=== PATIENT | female | born 2000 ===

== ENCOUNTER 2021-05-07 14:17 | Emergency (ER) | payer SELFPAY ==
[2021-05-07] MEDS ORDERED: SODIUM CHLORIDE 0.9% 1000 ML 1,000 ML IV ONE (14:54)
[2021-05-07 14:58] LABS: Basophils % (Auto) 0.2 % (0.0-1.8); Eosinophils # (Auto) 0.1 K/mm3 (0.0-0.4); Eosinophils % (Auto) 0.8 % (0.0-4.3); Hematocrit 37.8 % (30.3-42.9); Hemoglobin 12.4 gm/dl (10.1-14.3); Lymphocytes # (Auto) 1.7 K/mm3 (1.2-5.4); Lymphocytes % (Auto) 18.8 % (13.4-35.0); Mean Corpuscular HGB Conc 33 % (30-34); Mean Corpuscular Volume 85 fl (79-97); Monocytes # (Auto) 0.6 K/mm3 (0.0-0.8); Monocytes % (Auto) 6.5 % (0.0-7.3); Platelet Count 199 K/mm3 (140-440); Red Blood Count 4.45 M/mm3 (3.65-5.03); Red Cell Distribution Width 13.4 % (13.2-15.2)
[2021-05-07 15:33] LABS: Alanine Aminotransferase 12 units/L (7-56); Albumin 3.7 g/dL (3.9-5); Blood Urea Nitrogen 4 mg/dL (7-17); Calcium 8.7 mg/dL (8.4-10.2); Hemolysis Index 5
[2021-05-07 15:41] LABS: BUN/Creatinine Ratio 10
--- NOTE | 2021-05-07 15:48 | Emergency Department Report ---
History of Present Illness - General Chief Complaint: Overdose Stated Complaint: OVERDOSE Time Seen by Provider: 05/07/21 14:54 Source: patient, family, EMS Mode of arrival: Stretcher Limitations: Language Barrier, Other - History of Present Illness Initial Comments: 20-year-old female 4 months with her first child presents to the hospital complaining of generalized weakness. Patient was brought here under the pretense of possible intentional pill overdose. Patient got into argument with her . Her left the home for several hours and patient was in a room in the home with the door locked and not responding. He forced his way into the room and found her with a bottle of ibuprofen. Apparently patient has made threats to overdose on her bottle of ibuprofen in the past. Upon ED arrival patient is withdrawn and barely responsive to questions. Upon her uncle and cousins arrival she is answering more questions freely in Armenian. She denies taking any other ibuprofen but complains of feeling weak all over and doesn't remember what happened. This weakness apparently started after argument with her boyfriend. She does not endorse headache, chest pain, abdominal pain, nausea, vomiting, or shortness of breath. A pill bottle of ibuprofen 400 mg was brought to the ED. This bottle was filled in April 2020 with 50 tabs in the bottle. The actual pill count and the bottle is 77 tablets. Patient and family deny that there were any other medications in the home. Patient is receiving care - Related Data Previous Rx's Medication Instructions Recorded Last Taken Type Nitrofurantoin [place]/M-Cryst 100 mg PO Q12HR #12 capsule 05/07/21 Unknown Rx [Macrobid CAP] Allergies Allergy/AdvReac Type Severity Reaction Status Date / Time No Known Allergies Allergy Unverified 05/07/21 15:09 ED Review of Systems ROS: Stated complaint: OVERDOSE Other details as noted in HPI Comment: All other systems reviewed and negative ED Past Medical Hx - Medications Home Medications: Home Medications Medication Instructions Recorded Confirmed Last Taken Type Nitrofurantoin [place]/M-Cryst 100 mg PO Q12HR #12 capsule 05/07/21 Unknown Rx [Macrobid CAP] ED Physical Exam - General Limitations: Altered Mental Status - Other Other exam information: General: No acute distress Head: Atraumatic Eyes: normal appearance ENT: Moist mucous membranes Neck: Normal appearance, no midline tenderness Chest: Clear to auscultation bilaterally CV: Regular rate and rhythm Abdomen: Soft, normal bowel sounds, nontender, nondistended, no rebound or guarding Back: Normal inspection Extremity: Normal inspection, full range of motion Neuro: Alert O x 3, no facial asymmetry, speech clear, no gross motor or sensory deficit. 5/5 upper and lower to strength but patient refuses to squeeze my fingers with either hand but she is able to lift arms and legs against gravity. I suspect poor effort Psych: Withdrawn, flat affect Skin: No rash ED Course Vital Signs 05/07/21 05/07/21 05/07/21 14:25 15:03 15:50 Temperature 98.7 F Pulse Rate 80 87 Respiratory 16 14 Rate Blood Pressure Blood Pressure 124/70 112/67 [Right] O2 Sat by Pulse 98 100 100 Oximetry 05/07/21 05/07/21 05/07/21 17:19 17:30 18:45 Temperature Pulse Rate 93 H 88 74 Respiratory 15 18 12 Rate Blood Pressure Blood Pressure 110/66 100/56 109/64 [Right] O2 Sat by Pulse 100 100 100 Oximetry 05/07/21 05/08/21 05/08/21 19:50 03:00 09:49 Temperature 98.5 F 98.8 F Pulse Rate 86 70 84 Respiratory 12 14 18 Rate Blood Pressure 109/64 Blood Pressure 105/60 103/66 [Right] O2 Sat by Pulse 100 99 99 Oximetry 05/08/21 05/09/21 19:34 11:03 Temperature 98.1 F 97.7 F Pulse Rate 69 83 Respiratory 16 18 Rate Blood Pressure Blood Pressure 115/63 122/78 [Right] O2 Sat by Pulse 98 99 Oximetry ED Medical Decision Making - Lab Data Result diagrams: 05/07/21 14:40 05/07/21 14:40 Lab Results 05/07/21 05/07/21 05/07/21 Range/Units 14:40 14:40 14:40 WBC 9.2 (4.5-11.0) K/mm3 RBC 4.45 (3.65-5.03) M/mm3 Hgb 12.4 (10.1-14.3) gm/dl Hct 37.8 (30.3-42.9) % MCV 85 (79-97) fl MCH 28 (28-32) pg MCHC 33 (30-34) % RDW 13.4 (13.2-15.2) % Plt Count 199 (140-440) K/mm3 Lymph % (Auto) 18.8 (13.4-35.0) % Louisa % (Auto) 6.5 (0.0-7.3) % Eos % (Auto) 0.8 (0.0-4.3) % Baso % (Auto) 0.2 (0.0-1.8) % Lymph # (Auto) 1.7 (1.2-5.4) K/mm3 Louisa # (Auto) 0.6 (0.0-0.8) K/mm3 Eos # (Auto) 0.1 (0.0-0.4) K/mm3 Baso # (Auto) 0.0 (0.0-0.1) K/mm3 Seg Neutrophils % 73.7 H (40.0-70.0) % Seg Neutrophils # 6.8 (1.8-7.7) K/mm3 Sodium 136 L (137-145) mmol/L Potassium 4.0 (3.6-5.0) mmol/L Chloride 105.7 (98-107) mmol/L Carbon Dioxide 20 L (22-30) mmol/L Anion Gap 14 mmol/L BUN 4 L (7-17) mg/dL Creatinine 0.4 L (0.6-1.2) mg/dL Estimated GFR > 60 ml/min BUN/Creatinine Ratio 10 % Glucose 82 (65-100) mg/dL Calcium 8.7 (8.4-10.2) mg/dL Total Bilirubin 0.30 (0.1-1.2) mg/dL AST 11 (5-40) units/L ALT 12 (7-56) units/L Alkaline Phosphatase 72 (35-129) units/L Total Protein 7.2 (6.3-8.2) g/dL Albumin 3.7 L (3.9-5) g/dL Albumin/Globulin Ratio 1.1 % HCG, Quant 01787 H (0-4) mIU/mL Urine Color (Yellow) Urine Turbidity (Clear) Urine pH (5.0-7.0) Ur Specific [place] (1.003-1.030) Urine Protein (Negative) mg/dL Urine Glucose (UA) (Negative) mg/dL Urine Ketones (Negative) mg/dL Urine Blood (Negative) Urine Nitrite (Negative) Urine Bilirubin (Negative) Urine Urobilinogen (<2.0) mg/dL Ur Leukocyte Esterase (Negative) Urine WBC (Auto) (0.0-6.0) /HPF Urine RBC (Auto) (0.0-6.0) /HPF U Epithel Cells (Auto) (0-13.0) /HPF Urine Bacteria (Auto) (Negative) /HPF Urine Mucus /HPF Salicylates (2.8-20.0) mg/dL Urine Opiates Screen Urine Methadone Screen Acetaminophen (10.0-30.0) ug/mL Ur Barbiturates Screen Ur Phencyclidine Scrn Ur Amphetamines Screen U Benzodiazepines Scrn Urine Cocaine Screen U Marijuana (THC) Screen Drugs of Abuse Note Plasma/Serum Alcohol (0-0.07) % 05/07/21 05/07/21 05/07/21 Range/Units 14:40 14:40 14:40 WBC (4.5-11.0) K/mm3 RBC (3.65-5.03) M/mm3 Hgb (10.1-14.3) gm/dl Hct (30.3-42.9) % MCV (79-97) fl MCH (28-32) pg MCHC (30-34) % RDW (13.2-15.2) % Plt Count (140-440) K/mm3 Lymph % (Auto) (13.4-35.0) % Louisa % (Auto) (0.0-7.3) % Eos % (Auto) (0.0-4.3) % Baso % (Auto) (0.0-1.8) % Lymph # (Auto) (1.2-5.4) K/mm3 Louisa # (Auto) (0.0-0.8) K/mm3 Eos # (Auto) (0.0-0.4) K/mm3 Baso # (Auto) (0.0-0.1) K/mm3 Seg Neutrophils % (40.0-70.0) % Seg Neutrophils # (1.8-7.7) K/mm3 Sodium (137-145) mmol/L Potassium (3.6-5.0) mmol/L Chloride (98-107) mmol/L Carbon Dioxide (22-30) mmol/L Anion Gap mmol/L BUN (7-17) mg/dL Creatinine (0.6-1.2) mg/dL Estimated GFR ml/min BUN/Creatinine Ratio % Glucose (65-100) mg/dL Calcium (8.4-10.2) mg/dL Total Bilirubin (0.1-1.2) mg/dL AST (5-40) units/L ALT (7-56) units/L Alkaline Phosphatase (35-129) units/L Total Protein (6.3-8.2) g/dL Albumin (3.9-5) g/dL Albumin/Globulin Ratio % HCG, Quant (0-4) mIU/mL Urine Color (Yellow) Urine Turbidity (Clear) Urine pH (5.0-7.0) Ur Specific [place] (1.003-1.030) Urine Protein (Negative) mg/dL Urine Glucose (UA) (Negative) mg/dL Urine Ketones (Negative) mg/dL Urine Blood (Negative) Urine Nitrite (Negative) Urine Bilirubin (Negative) Urine Urobilinogen (<2.0) mg/dL Ur Leukocyte Esterase (Negative) Urine WBC (Auto) (0.0-6.0) /HPF Urine RBC (Auto) (0.0-6.0) /HPF U Epithel Cells (Auto) (0-13.0) /HPF Urine Bacteria (Auto) (Negative) /HPF Urine Mucus /HPF Salicylates < 0.3 L (2.8-20.0) mg/dL Urine Opiates Screen Urine Methadone Screen Acetaminophen 5.0 L (10.0-30.0) ug/mL Ur Barbiturates Screen Ur Phencyclidine Scrn Ur Amphetamines Screen U Benzodiazepines Scrn Urine Cocaine Screen U Marijuana (THC) Screen Drugs of Abuse Note Plasma/Serum Alcohol < 0.01 (0-0.07) % 05/07/21 05/07/21 Range/Units 17:05 17:05 WBC (4.5-11.0) K/mm3 RBC (3.65-5.03) M/mm3 Hgb (10.1-14.3) gm/dl Hct (30.3-42.9) % MCV (79-97) fl MCH (28-32) pg MCHC (30-34) % RDW (13.2-15.2) % Plt Count (140-440) K/mm3 Lymph % (Auto) (13.4-35.0) % Louisa % (Auto) (0.0-7.3) % Eos % (Auto) (0.0-4.3) % Baso % (Auto) (0.0-1.8) % Lymph # (Auto) (1.2-5.4) K/mm3 Louisa # (Auto) (0.0-0.8) K/mm3 Eos # (Auto) (0.0-0.4) K/mm3 Baso # (Auto) (0.0-0.1) K/mm3 Seg Neutrophils % (40.0-70.0) % Seg Neutrophils # (1.8-7.7) K/mm3 Sodium (137-145) mmol/L Potassium (3.6-5.0) mmol/L Chloride (98-107) mmol/L Carbon Dioxide (22-30) mmol/L Anion Gap mmol/L BUN (7-17) mg/dL Creatinine (0.6-1.2) mg/dL Estimated GFR ml/min BUN/Creatinine Ratio % Glucose (65-100) mg/dL Calcium (8.4-10.2) mg/dL Total Bilirubin (0.1-1.2) mg/dL AST (5-40) units/L ALT (7-56) units/L Alkaline Phosphatase (35-129) units/L Total Protein (6.3-8.2) g/dL Albumin (3.9-5) g/dL Albumin/Globulin Ratio % HCG, Quant (0-4) mIU/mL Urine Color Yellow (Yellow) Urine Turbidity Clear (Clear) Urine pH 7.0 (5.0-7.0) Ur Specific [place] 1.006 (1.003-1.030) Urine Protein <15 mg/dl (Negative) mg/dL Urine Glucose (UA) Neg (Negative) mg/dL Urine Ketones 20 (Negative) mg/dL Urine Blood Neg (Negative) Urine Nitrite Pos (Negative) Urine Bilirubin Neg (Negative) Urine Urobilinogen < 2.0 (<2.0) mg/dL Ur Leukocyte Esterase Tr (Negative) Urine WBC (Auto) 1.0 (0.0-6.0) /HPF Urine RBC (Auto) 1.0 (0.0-6.0) /HPF U Epithel Cells (Auto) 3.0 (0-13.0) /HPF Urine Bacteria (Auto) 1+ (Negative) /HPF Urine Mucus Few /HPF Salicylates (2.8-20.0) mg/dL Urine Opiates Screen Negative Urine Methadone Screen Negative Acetaminophen (10.0-30.0) ug/mL Ur Barbiturates Screen Negative Ur Phencyclidine Scrn Negative Ur Amphetamines Screen Negative U Benzodiazepines Scrn Negative Urine Cocaine Screen Negative U Marijuana (THC) Screen Negative Drugs of Abuse Note Disclamer Plasma/Serum Alcohol (0-0.07) % - EKG Data -: EKG Interpreted by Me EKG shows normal: sinus rhythm, intervals (Intervals normal), QRS complexes (QRS duration 77), ST-T waves (No STEMI) Rate: normal (78) - EKG Data When compared to previous EKG there are: previous EKG unavailable - Radiology Data Radiology results: report reviewed ULTRASOUND OBSTETRIC INDICATION / CLINICAL INFORMATION: weakness possible overdose. TECHNIQUE: Transabdominal. COMPARISON: None available. FINDINGS: Single intrauterine . Biparietal Diameter = 3.9 cm = 17, 5 weeks, days Head Circumference = 14.3 cm = 17, for weeks, days Abdominal Circumference = 12.0 cm = 17, 5 weeks, days Femur Length = 2.5 cm = 17, 3 weeks, days Average Ultrasound Age (AUA) = 17, 4 weeks, days Heart Rate: 149 beats per minute. Estimated Weight in grams (if calculated): 201 Position: breech. Cervix: closed. Length in cm (if measured): 3.7 Placenta: anterior and free of the os. Amniotic Fluid Volume: normal Maternal Adnexa: No significant abnormality. IMPRESSION: 1. Single, living intrauterine with estimated sonographic age of 17, 4 weeks, days. 2. No significant sonographic abnormality. Signer Name: Hudson Keating MD - Medical Decision Making 1013 signed for psychiatric evaluation based on collateral history regarding patient's previous threats of overdose and her elusive behavior today. No evidence that patient had any toxic ingestion today but per collateral history patient has made threat. ultrasound performed and positive IUP with heart beat. Patient is medically cleared. will treat for UTI givein + nitrates. Patient is medically cleared Critical Care Time: No Critical care attestation.: If time is entered above; I have spent that time in minutes in the direct care of this critically ill patient, excluding procedure time. ED Disposition Clinical Impression: Suicidal ideation, 17 weeks gestation of , UTI (urinary tract infec tion), Flat affect, Medical clearance for psychiatric admission Disposition: [address] [place] [address] Is pt being admited?: No Condition: Stable Instructions: and Urinary Tract Infection, Suicidal Feelings: How to Help Yourself, Second Trimester of , [id number] Prescriptions: Nitrofurantoin Louisa/M-Cryst [Macrobid CAP] 100 mg PO Q12HR #12 capsule Referrals: PRIMARY CARE, [Primary Care Provider] - 3-5 Days Print Language: BRAZILIAN
--- NOTE | 2021-05-07 17:00 | Ultrasound Report ---
ULTRASOUND OBSTETRIC INDICATION / CLINICAL INFORMATION: weakness possible overdose. TECHNIQUE: Transabdominal. COMPARISON: None available. FINDINGS: Single intrauterine . Biparietal Diameter = 3.9 cm = 17, 5 weeks, days Head Circumference = 14.3 cm = 17, for weeks, days Abdominal Circumference = 12.0 cm = 17, 5 weeks, days Femur Length = 2.5 cm = 17, 3 weeks, days Average Ultrasound Age (AUA) = 17, 4 weeks, days Heart Rate: 149 beats per minute. Estimated Weight in grams (if calculated): 201 Position: breech. Cervix: closed. Length in cm (if measured): 3.7 Placenta: anterior and free of the os. Amniotic Fluid Volume: normal Maternal Adnexa: No significant abnormality. IMPRESSION: 1. Single, living intrauterine with estimated sonographic age of 17, 4 weeks, days. 2. No significant sonographic abnormality. Signer Name: Hudson Keating MD Signed: 05/07/2021 4:56 PM Workstation Name: [id number]
[2021-05-07 18:25] LABS: Bacteria,Urine 1+ /HPF (Negative); Bilirubin,Urine NEG (Negative); Blood,Urine NEG (Negative); Color,Urine Yellow (Yellow); Mucus,Urine FEW /HPF; Protein,Urine <15 mg/dL mg/dL (Negative); Urobilinogen,Urine < 2.0 mg/dL (<2.0)
[2021-05-07 18:33] LABS: Amphetamine Screen,Urine Negative; Benzodiazepines Screen,Urine Negative; Cannabinoid Screen,Urine Negative; Cocaine Screen,Urine Negative; Methadone Screen,Urine Negative; Opiate Screen,Urine Negative
[2021-05-07] MEDS: NITROFURANTOIN MONOHYD/M-CRYST 100 MG CAP PO SCH (21:52)
--- NOTE | 2021-05-08 11:27 | Consultation ---
History of Present Illness - Reason for Consult Consult date: 05/08/21 Reason for consult: OD - History of Present Psychiatric Illness ED Note: 20-year-old female 4 months with her first child presents to the hospital complaining of generalized weakness. Patient was brought here under the pretense of possible intentional pill overdose. Patient got into argument with her . Her left the home for several hours and petra ragland was in a room in the home with the door locked and not responding. He forced his way into the room and found her with a bottle of ibuprofen. Apparently patient has made threats to overdose on her bottle of ibuprofen in the past. Upon ED arrival patient is withdrawn and barely responsive to questions. Upon her uncle and cousins arrival she is answering more questions freely in Hungarian. She denies taking any other ibuprofen but complains of feeling weak all over and doesn't remember what happened. This weakness apparently started after argument with her boyfriend. She does not endorse headache, chest pain, abdominal pain, nausea, vomiting, or shortness of breath. A pill bottle of ibuprofen 400 mg was brought to the ED. This bottle was filled in April 2020 with 50 tabs in the bottle. The actual pill count and the bottle is 77 tablets. Patient and family deny that there were any other medications in the home. Patient is receiving care. Jacqueline Cruz is a 20 year old patient with no psychiatric history and she is naive to psychotropic medications. The interview was obtained with the help of an park interpreter. The patient reports not know why she came to the ED stating she woke up and found herself here. The patient denies overdosing on Tylenol and denies being depressed. She reports getting upset when her refused taking her to see her family. She denies any current suicidal/homicidal ideation and denies hallucinations. PAST PSYCHIATRIC HISTORY Diagnoses: Denies Suicide attempts or Self-harm behavior: Denies Prior psychiatric hospitalizations: Denies Substance Abuse history: Denies Previous psychiatric medications tried: Denied Outpatient treatment: Denied SOCIAL HISTORY Marital Status: Living Arrangements: Lives with Employment Status:employed Access to guns/weapons: Denied Education: 12th grade History of Abuse: Denied Legal History: None reported REVIEW OF SYSTEMS Constitutional: Negative for weight loss ENT: Negative for stridor Respiratory: Negative for cough or hemoptysis All other systems reviewed and are negative MENTAL STATUS EXAMINATION General Appearance and Behavior: Age appropriate, dressed appropriately, calm and uncooperative Cooperation: cooperative Psychomotor Behavior: psychomotor normal Mood:ok Affect and affective range: restricted Thought Process: goal oriented Thought Content: Not suicidal Speech: Normal volume, Regular rate and rhythm, Intellectual Functioning: Average Suicidal Ideation: Denies Homicidal Ideation: Denies Hallucinations: Denies Delusions: None elicited Impulse Control: Unimpaired Insight and Judgment: limited insight and judgment, Memory: Normal Attention: divided Orientation: Alert, oriented Assessment and Plan (1) Major depressive disorder (2) Treatment plan continue 1013 Start Sertraline 25mg po daily Continue previous prescribed meds Risks, benefits and alternatives of medications discussed with the patient, questions answered and consent obtained from patient. PSYCHOTHERAPY: Supportive psychotherapy provided MEDICAL: Per primary team DELIRIUM PRECAUTIONS: Please re-orient patient frequently, keep lights on during the day, and minimize benzodiazepines and opiates as these medications could worsen patient's confusion. FIELD IDENTIFICATION SPECIALIST: Per medical team DISPOSITION: Recommend acute inpatient psychiatric hospitalization. Will sign follow. Thank you for the consult. Please contact with any questions and/or concerns. Case staffed with Dr. Leal Medications and Allergies Allergies Allergy/AdvReac Type Severity Reaction Status Date / Time No Known Allergies Allergy Unverified 05/07/21 15:09 Home Medications Medication Instructions Recorded Confirmed Last Taken Type Nitrofurantoin [place]/M-Cryst 100 mg PO Q12HR #12 capsule 05/07/21 Unknown Rx [Macrobid CAP] Active Meds: Active Medications Nitrofurantoin Macrocrystals (Nitrofurantoin Monohyd/M-Cryst 100 Mg Cap) 100 mg PO BID CALEB Last Admin: 05/07/21 21:52 Dose: 100 mg Documented by: Mental Status Exam - Vital signs Last Vital Signs Temp 98.8 F 05/08/21 09:49 Pulse 84 05/08/21 09:49 Resp 18 05/08/21 09:49 BP 103/66 05/08/21 09:49 Pulse Ox 99 05/08/21 09:49 Results Result Diagrams: 05/07/21 14:40 05/07/21 14:40 Abnormal lab results 05/07/21 05/07/21 05/07/21 Range/Units 14:40 14:40 14:40 Seg Neutrophils % 73.7 H (40.0-70.0) % Sodium 136 L (137-145) mmol/L Carbon Dioxide 20 L (22-30) mmol/L BUN 4 L (7-17) mg/dL Creatinine 0.4 L (0.6-1.2) mg/dL Albumin 3.7 L (3.9-5) g/dL HCG, Quant 91960 H (0-4) mIU/mL Salicylates (2.8-20.0) mg/dL Acetaminophen (10.0-30.0) ug/mL 05/07/21 05/07/21 Range/Units 14:40 14:40 Seg Neutrophils % (40.0-70.0) % Sodium (137-145) mmol/L Carbon Dioxide (22-30) mmol/L BUN (7-17) mg/dL Creatinine (0.6-1.2) mg/dL Albumin (3.9-5) g/dL HCG, Quant (0-4) mIU/mL Salicylates < 0.3 L (2.8-20.0) mg/dL Acetaminophen 5.0 L (10.0-30.0) ug/mL All other labs normal.
[2021-05-08] MEDS ORDERED: PYRIDOXINE 50 MG TAB PO PRN (11:50)
[2021-05-08] MEDS ORDERED: ONDANSETRON 4 MG ODT TAB PO PRN (11:51)
[2021-05-08] MEDS ORDERED: ACETAMINOPHEN 325 MG TAB PO PRN (11:51)
--- NOTE | 2021-05-08 11:54 | Event Note ---
Date: 05/08/21 Laboratory studies, vital signs, nursing documentation, ER documentation, laboratory studies, radiology and psychiatric documentation are reviewed and appreciated. Nursing team reports no acute events this morning or concerns. The patient is awake and not in any acute distress. The patient was deemed medically suitable for psychiatric disposition and placement during her initial ER evaluation. The patient continues to remain medically suitable for psychiatric placement and disposition. He is currently pending psychiatric placement. Have ordered as needed nausea medications, daily vitamins, Macrobid for bacteriuria ordered by the initial treating physician. Covid swab ordered in anticipation of potential placement. Vital Signs 05/07/21 05/07/21 05/07/21 14:25 15:03 15:50 Temperature 98.7 F Pulse Rate 80 87 Respiratory 16 14 Rate Blood Pressure Blood Pressure 124/70 112/67 [Right] O2 Sat by Pulse 98 100 100 Oximetry 05/07/21 05/07/21 05/07/21 17:19 17:30 18:45 Temperature Pulse Rate 93 H 88 74 Respiratory 15 18 12 Rate Blood Pressure Blood Pressure 110/66 100/56 109/64 [Right] O2 Sat by Pulse 100 100 100 Oximetry 05/07/21 05/08/21 05/08/21 19:50 03:00 09:49 Temperature 98.5 F 98.8 F Pulse Rate 86 70 84 Respiratory 12 14 18 Rate Blood Pressure 109/64 Blood Pressure 105/60 103/66 [Right] O2 Sat by Pulse 100 99 99 Oximetry Lab Results 05/07/21 05/07/21 05/07/21 Range/Units 14:40 14:40 14:40 WBC 9.2 (4.5-11.0) K/mm3 RBC 4.45 (3.65-5.03) M/mm3 Hgb 12.4 (10.1-14.3) gm/dl Hct 37.8 (30.3-42.9) % MCV 85 (79-97) fl MCH 28 (28-32) pg MCHC 33 (30-34) % RDW 13.4 (13.2-15.2) % Plt Count 199 (140-440) K/mm3 Lymph % (Auto) 18.8 (13.4-35.0) % [place] % (Auto) 6.5 (0.0-7.3) % Eos % (Auto) 0.8 (0.0-4.3) % Baso % (Auto) 0.2 (0.0-1.8) % Lymph # (Auto) 1.7 (1.2-5.4) K/mm3 [place] # (Auto) 0.6 (0.0-0.8) K/mm3 Eos # (Auto) 0.1 (0.0-0.4) K/mm3 Baso # (Auto) 0.0 (0.0-0.1) K/mm3 Seg Neutrophils % 73.7 H (40.0-70.0) % Seg Neutrophils # 6.8 (1.8-7.7) K/mm3 Sodium 136 L (137-145) mmol/L Potassium 4.0 (3.6-5.0) mmol/L Chloride 105.7 (98-107) mmol/L Carbon Dioxide 20 L (22-30) mmol/L Anion Gap 14 mmol/L BUN 4 L (7-17) mg/dL Creatinine 0.4 L (0.6-1.2) mg/dL Estimated GFR > 60 ml/min BUN/Creatinine Ratio 10 % Glucose 82 (65-100) mg/dL Calcium 8.7 (8.4-10.2) mg/dL Total Bilirubin 0.30 (0.1-1.2) mg/dL AST 11 (5-40) units/L ALT 12 (7-56) units/L Alkaline Phosphatase 72 (35-129) units/L Total Protein 7.2 (6.3-8.2) g/dL Albumin 3.7 L (3.9-5) g/dL Albumin/Globulin Ratio 1.1 % HCG, Quant 22039 H (0-4) mIU/mL Urine Color (Yellow) Urine Turbidity (Clear) Urine pH (5.0-7.0) Ur Specific [place] (1.003-1.030) Urine Protein (Negative) mg/dL Urine Glucose (UA) (Negative) mg/dL Urine Ketones (Negative) mg/dL Urine Blood (Negative) Urine Nitrite (Negative) Urine Bilirubin (Negative) Urine Urobilinogen (<2.0) mg/dL Ur Leukocyte Esterase (Negative) Urine WBC (Auto) (0.0-6.0) /HPF Urine RBC (Auto) (0.0-6.0) /HPF U Epithel Cells (Auto) (0-13.0) /HPF Urine Bacteria (Auto) (Negative) /HPF Urine Mucus /HPF Salicylates (2.8-20.0) mg/dL Urine Opiates Screen Urine Methadone Screen Acetaminophen (10.0-30.0) ug/mL Ur Barbiturates Screen Ur Phencyclidine Scrn Ur Amphetamines Screen U Benzodiazepines Scrn Urine Cocaine Screen U Marijuana (THC) Screen Drugs of Abuse Note Plasma/Serum Alcohol (0-0.07) % 05/07/21 05/07/21 05/07/21 Range/Units 14:40 14:40 14:40 WBC (4.5-11.0) K/mm3 RBC (3.65-5.03) M/mm3 Hgb (10.1-14.3) gm/dl Hct (30.3-42.9) % MCV (79-97) fl MCH (28-32) pg MCHC (30-34) % RDW (13.2-15.2) % Plt Count (140-440) K/mm3 Lymph % (Auto) (13.4-35.0) % Newton % (Auto) (0.0-7.3) % Eos % (Auto) (0.0-4.3) % Baso % (Auto) (0.0-1.8) % Lymph # (Auto) (1.2-5.4) K/mm3 [place] # (Auto) (0.0-0.8) K/mm3 Eos # (Auto) (0.0-0.4) K/mm3 Baso # (Auto) (0.0-0.1) K/mm3 Seg Neutrophils % (40.0-70.0) % Seg Neutrophils # (1.8-7.7) K/mm3 Sodium (137-145) mmol/L Potassium (3.6-5.0) mmol/L Chloride (98-107) mmol/L Carbon Dioxide (22-30) mmol/L Anion Gap mmol/L BUN (7-17) mg/dL Creatinine (0.6-1.2) mg/dL Estimated GFR ml/min BUN/Creatinine Ratio % Glucose (65-100) mg/dL Calcium (8.4-10.2) mg/dL Total Bilirubin (0.1-1.2) mg/dL AST (5-40) units/L ALT (7-56) units/L Alkaline Phosphatase (35-129) units/L Total Protein (6.3-8.2) g/dL Albumin (3.9-5) g/dL Albumin/Globulin Ratio % HCG, Quant (0-4) mIU/mL Urine Color (Yellow) Urine Turbidity (Clear) Urine pH (5.0-7.0) Ur Specific [place] (1.003-1.030) Urine Protein (Negative) mg/dL Urine Glucose (UA) (Negative) mg/dL Urine Ketones (Negative) mg/dL Urine Blood (Negative) Urine Nitrite (Negative) Urine Bilirubin (Negative) Urine Urobilinogen (<2.0) mg/dL Ur Leukocyte Esterase (Negative) Urine WBC (Auto) (0.0-6.0) /HPF Urine RBC (Auto) (0.0-6.0) /HPF U Epithel Cells (Auto) (0-13.0) /HPF Urine Bacteria (Auto) (Negative) /HPF Urine Mucus /HPF Salicylates < 0.3 L (2.8-20.0) mg/dL Urine Opiates Screen Urine Methadone Screen Acetaminophen 5.0 L (10.0-30.0) ug/mL Ur Barbiturates Screen Ur Phencyclidine Scrn Ur Amphetamines Screen U Benzodiazepines Scrn Urine Cocaine Screen U Marijuana (THC) Screen Drugs of Abuse Note Plasma/Serum Alcohol < 0.01 (0-0.07) % 05/07/21 05/07/21 Range/Units 17:05 17:05 WBC (4.5-11.0) K/mm3 RBC (3.65-5.03) M/mm3 Hgb (10.1-14.3) gm/dl Hct (30.3-42.9) % MCV (79-97) fl MCH (28-32) pg MCHC (30-34) % RDW (13.2-15.2) % Plt Count (140-440) K/mm3 Lymph % (Auto) (13.4-35.0) % [place] % (Auto) (0.0-7.3) % Eos % (Auto) (0.0-4.3) % Baso % (Auto) (0.0-1.8) % Lymph # (Auto) (1.2-5.4) K/mm3 [place] # (Auto) (0.0-0.8) K/mm3 Eos # (Auto) (0.0-0.4) K/mm3 Baso # (Auto) (0.0-0.1) K/mm3 Seg Neutrophils % (40.0-70.0) % Seg Neutrophils # (1.8-7.7) K/mm3 Sodium (137-145) mmol/L Potassium (3.6-5.0) mmol/L Chloride (98-107) mmol/L Carbon Dioxide (22-30) mmol/L Anion Gap mmol/L BUN (7-17) mg/dL Creatinine (0.6-1.2) mg/dL Estimated GFR ml/min BUN/Creatinine Ratio % Glucose (65-100) mg/dL Calcium (8.4-10.2) mg/dL Total Bilirubin (0.1-1.2) mg/dL AST (5-40) units/L ALT (7-56) units/L Alkaline Phosphatase (35-129) units/L Total Protein (6.3-8.2) g/dL Albumin (3.9-5) g/dL Albumin/Globulin Ratio % HCG, Quant (0-4) mIU/mL Urine Color Yellow (Yellow) Urine Turbidity Clear (Clear) Urine pH 7.0 (5.0-7.0) Ur Specific [place] 1.006 (1.003-1.030) Urine Protein <15 mg/dl (Negative) mg/dL Urine Glucose (UA) Neg (Negative) mg/dL Urine Ketones 20 (Negative) mg/dL Urine Blood Neg (Negative) Urine Nitrite Pos (Negative) Urine Bilirubin Neg (Negative) Urine Urobilinogen < 2.0 (<2.0) mg/dL Ur Leukocyte Esterase Tr (Negative) Urine WBC (Auto) 1.0 (0.0-6.0) /HPF Urine RBC (Auto) 1.0 (0.0-6.0) /HPF U Epithel Cells (Auto) 3.0 (0-13.0) /HPF Urine Bacteria (Auto) 1+ (Negative) /HPF Urine Mucus Few /HPF Salicylates (2.8-20.0) mg/dL Urine Opiates Screen Negative Urine Methadone Screen Negative Acetaminophen (10.0-30.0) ug/mL Ur Barbiturates Screen Negative Ur Phencyclidine Scrn Negative Ur Amphetamines Screen Negative U Benzodiazepines Scrn Negative Urine Cocaine Screen Negative U Marijuana (THC) Screen Negative Drugs of Abuse Note Disclamer Plasma/Serum Alcohol (0-0.07) %
[2021-05-08] MEDS: PRENATAL VIT27-FE FUMARATE-FOLIC ACID VIT TAB PO SCH (12:39)
[2021-05-08] MEDS: SERTRALINE 25 MG TAB PO SCH (12:39)
[2021-05-08] MEDS: NITROFURANTOIN MONOHYD/M-CRYST 100 MG CAP PO SCH ×2 (12:39→22:05)
[2021-05-09] MEDS: SERTRALINE 25 MG TAB PO SCH (10:19)
[2021-05-09] MEDS: NITROFURANTOIN MONOHYD/M-CRYST 100 MG CAP PO SCH ×2 (10:19→22:04)
[2021-05-09] MEDS: PRENATAL VIT27-FE FUMARATE-FOLIC ACID VIT TAB PO SCH (10:19)
--- NOTE | 2021-05-09 10:50 | Progress Note ---
Subjective - Reason for Consult Consult date: 05/09/21 Reason for consult: OD - Chief Complaint Chief complaint: The patient was seen via rail car operator. She reports feeling sad. The patient denies any current suicidal/homicidal ideation at this time however, this screenplay writer will continue to recommend for inpatient admission due to the recent incident of overdose. REVIEW OF SYSTEMS Constitutional: Negative for weight loss ENT: Negative for stridor Respiratory: Negative for cough or hemoptysis All other systems reviewed and are negative MENTAL STATUS EXAMINATION General Appearance and Behavior: Age appropriate, dressed appropriately, calm and uncooperative Cooperation: cooperative Psychomotor Behavior: psychomotor normal Mood:sad Affect and affective range: restricted Thought Process: goal oriented Thought Content: Not suicidal Speech: Normal volume, Regular rate and rhythm, Intellectual Functioning: Average Suicidal Ideation: Denies Homicidal Ideation: Denies Hallucinations: Denies Delusions: None elicited Impulse Control: Unimpaired Insight and Judgment: limited insight and judgment, Memory: Normal Attention: divided Orientation: Alert, oriented Assessment and Plan (1) Major depressive disorder (2) Treatment plan continue 1013 Continue Sertraline 25mg po daily Continue previous prescribed meds Risks, benefits and alternatives of medications discussed with the patient, questions answered and consent obtained from patient. PSYCHOTHERAPY: Supportive psychotherapy provided MEDICAL: Per primary team DELIRIUM PRECAUTIONS: Please re-orient patient frequently, keep lights on during the day, and minimize benzodiazepines and opiates as these medications could worsen patient's confusion. HOSTESS CASHIER: Per medical team DISPOSITION: Recommend acute inpatient psychiatric hospitalization. Will sign follow. Thank you for the consult. Please contact with any questions and/or concerns. Case staffed with Dr. Leal Medications and Allergies Mental Status Exam - Vital signs Last Vital Signs Temp 98.1 F 05/08/21 19:34 Pulse 69 05/08/21 19:34 Resp 16 05/08/21 19:34 BP 115/63 05/08/21 19:34 Pulse Ox 98 05/08/21 19:34
--- NOTE | 2021-05-09 11:14 | Emergency Department Report ---
Blank Doc - Documentation Documentation: 20-year-old female on 1013, medically cleared, vital signs unremarkab le, no events overnight. On antibiotics for UTI. Psych meds initiated. Covid test pending. Pending placement
[2021-05-09 20:39] VITALS: BP 118/80
== END 2021-05-09 23:02 ==
LOC: ED 14:17
DX: R45.851 Suicidal ideations (principal); O26.892 Other specified pregnancy related conditions, second trimester; Z3A.17 17 weeks gestation of pregnancy; N39.0 Urinary tract infection, site not specified; Z13.30 Encounter for screening examination for mental health and behavioral disorders, unspecified; Z20.822 Contact with and (suspected) exposure to COVID-19
CPT/HCPCS: 36415; 76805; 80053; 80307; 81001; 84702; 85025; 93005; 96360; 99285; J7030; U0003; 80320; J3490; Q0162; G0480